=== PATIENT | female | born 1930 | race Caucasian/White ===

== ENCOUNTER 2016-10-16 06:15 | Inpatient (IN) | payer MEDICARE ==
[~2016-10-16] VITALS: Ht 152.4 cm; Wt 73.3 kg
[2016-10-16 08:55] VITALS: BP 119/67
[2016-10-16] MEDS ORDERED: HYDR-3240 PO (10:26)
[2016-10-16] MEDS ORDERED: NYST1POW2 TP (10:26)
[2016-10-16] MEDS ORDERED: CARV-39 PO (10:26)
[2016-10-16] MEDS ORDERED: MULT1TAB9 PO (10:26)
[2016-10-16] MEDS ORDERED: BIOT25005 PO (10:26)
[2016-10-16] MEDS ORDERED: LACT1CAP20 PO (10:26)
[2016-10-16] MEDS ORDERED: AMLO2.5T PO (10:26)
[2016-10-16] MEDS ORDERED: ACET-1757 PO (10:26)
[2016-10-16] MEDS ORDERED: ASCO500T8 PO (10:26)
[2016-10-16] MEDS ORDERED: LOPE2CAP94 PO (10:26)
[2016-10-16] MEDS ORDERED: HYDR-3342 PO (10:26)
[2016-10-16] MEDS ORDERED: ALPR0.25 PO (10:50)
[2016-10-16] MEDS ORDERED: ACETAMINOPHEN 325 MG TABLET PO PRN (12:00)
[2016-10-16] MEDS ORDERED: ENOXAPARIN 40 MG/0.4 ML SQ SCH (12:00)
[2016-10-16] MEDS ORDERED: PLEASE ENTER ALLERGIES MC SCH ×2 (12:00)
[2016-10-16] MEDS ORDERED: CEFTRIAXONE PMX 1GM/50ML 50 ML IV SCH (12:00)
[2016-10-16] MEDS ORDERED: ONDANSETRON 2MG/ML, 2ML IVPush PRN (12:00)
[2016-10-16] MEDS ORDERED: LABETALOL 5MG/ML, 20ML IVPush PRN (12:00)
[2016-10-16] MEDS ORDERED: BISACODYL 10 MG SUPP PR PRN (12:00)
[2016-10-16] MEDS ORDERED: HYDROcodone/APAP 5/325 TABLET PO PRN (12:00)
[2016-10-16] MEDS ORDERED: POLYETHYLENE GLYCOL 17 GM PACKET PO PRN (12:00)
[2016-10-16] MEDS ORDERED: DOCUSATE 100 MG CAPSULE PO PRN (12:00)
[2016-10-16] MEDS ORDERED: morphine SULFATE 10 MG/ML, 1ML IVPush PRN (12:00)
[2016-10-16 12:41] LABS: HEMATOCRIT 27.9 % (34.6-47.8); HEMOGLOBIN 9.1 g/dL (11.7-16.4); WHITE BLOOD COUNT 22.3 x10^3/uL (3.4-10)
[2016-10-16 12:54] LABS: BLOOD UREA NITROGEN 37 mg/dL (7-18)
[2016-10-16 13:03] LABS: DIFF TOTAL CELLS COUNTED 100 CELL DIFF
[2016-10-16 13:05] LABS: VERIFY COUNTS? YES
[2016-10-16 13:06] LABS: ANISOCYTOSIS 1+; MICROCYTOSIS 1+; OVALOCYTES 1+
[2016-10-16] MEDS: SODIUM CHLORIDE 0.9% 1,000 ML IV SCH ×2 (13:34→22:06)
[2016-10-16] MEDS: VANCOMYCIN 50 MG/ML ORAL SUSP PO SCH ×2 (13:35→20:55)
[2016-10-16 14:03] VITALS: BP 130/67
[2016-10-16 16:06] VITALS: BP 138/79
[2016-10-16 19:19] VITALS: BP 114/69
[2016-10-16] MEDS: NYSTATIN CRM 15GM TP SCH (20:55)
[2016-10-16] MEDS: CARVEDILOL 25 MG TABLET PO SCH (20:55)
[2016-10-16] MEDS: LACTOBACILLUS CHEW TABLET PO SCH (22:05)
[2016-10-17] MEDS: VANCOMYCIN 50 MG/ML ORAL SUSP PO SCH ×4 (01:06→20:40)
[2016-10-17 01:07] VITALS: BP 104/67
[2016-10-17 05:29] LABS: HEMATOCRIT 26.2 % (34.6-47.8); HEMOGLOBIN 8.4 g/dL (11.7-16.4)
[2016-10-17 05:45] LABS: BLOOD UREA NITROGEN 33 mg/dL (7-18)
[2016-10-17 06:25] LABS: DIFF TOTAL CELLS COUNTED 100 CELL DIFF
[2016-10-17 06:29] LABS: ANISOCYTOSIS 1+; MICROCYTOSIS 1+; VERIFY COUNTS? YES
[2016-10-17 06:30] LABS: OVALOCYTES 1+
[2016-10-17] MEDS: TEMPLATE NON-FORMULARY MED. (Biotin** 2,500 MG) PO SCH (09:00)
[2016-10-17] MEDS: CEFTRIAXONE PMX 1GM/50ML 50 ML IV SCH (09:09)
[2016-10-17] MEDS: ASCORBIC ACID 500 MG TABLET PO SCH (09:09)
[2016-10-17] MEDS: LACTOBACILLUS CHEW TABLET PO SCH ×2 (09:09→20:39)
[2016-10-17] MEDS: MULTIVITAMINS/MINERALS TABLET PO SCH (09:10)
[2016-10-17] MEDS: AMLODIPINE 2.5 MG TABLET PO SCH (09:10)
[2016-10-17] MEDS: CARVEDILOL 25 MG TABLET PO SCH ×2 (09:10→20:39)
[2016-10-17 11:34] VITALS: BP 102/63
[2016-10-17] MEDS ORDERED: ENOXAPARIN 30 MG/0.3 ML SQ SCH (13:00)
[2016-10-17] MEDS ORDERED: HEPARIN 5,000 UNITS/ML, 1ML SQ SCH (16:00)
[2016-10-17 16:07] VITALS: BP 102/57
[2016-10-17 20:36] VITALS: BP 110/51
[2016-10-17] MEDS: NYSTATIN CRM 15GM TP SCH (21:14)
[2016-10-18 01:14] VITALS: BP 107/59
[2016-10-18] MEDS: VANCOMYCIN 50 MG/ML ORAL SUSP PO SCH ×4 (01:57→21:28)
[2016-10-18 04:50] LABS: HEMATOCRIT 26.1 % (34.6-47.8); HEMOGLOBIN 8.3 g/dL (11.7-16.4); WHITE BLOOD COUNT 24.3 x10^3/uL (3.4-10)
[2016-10-18 05:02] LABS: BLOOD UREA NITROGEN 36 mg/dL (7-18)
[2016-10-18 05:35] LABS: DIFF TOTAL CELLS COUNTED 100 CELL DIFF
[2016-10-18 05:41] LABS: ANISOCYTOSIS 1+; VERIFY COUNTS? YES
[2016-10-18 05:43] LABS: OVALOCYTES 1+
[2016-10-18] MEDS: HEPARIN 5,000 UNITS/ML, 1ML SQ SCH ×3 (06:33→21:28)
[2016-10-18 08:17] VITALS: BP 113/50
[2016-10-18] MEDS: CARVEDILOL 25 MG TABLET PO SCH ×2 (08:58→21:29)
[2016-10-18] MEDS: LACTOBACILLUS CHEW TABLET PO SCH ×2 (08:58→21:29)
[2016-10-18] MEDS: AMLODIPINE 2.5 MG TABLET PO SCH (08:59)
[2016-10-18] MEDS: MULTIVITAMINS/MINERALS TABLET PO SCH (08:59)
[2016-10-18] MEDS: ASCORBIC ACID 500 MG TABLET PO SCH (08:59)
[2016-10-18] MEDS: TEMPLATE NON-FORMULARY MED. (Biotin** 2,500 MG) PO SCH (09:00)
[2016-10-18] MEDS: CEFTRIAXONE PMX 1GM/50ML 50 ML IV SCH (09:02)
[2016-10-18 13:02] VITALS: BP 104/54
[2016-10-18 18:11] LABS: TOTAL IRON BINDING CAPACITY 149 mcg/dL (250-450)
[2016-10-18 19:09] VITALS: BP 118/55
[2016-10-18] MEDS: DOXYCYCLINE 100 MG in DEXTROSE 5% 250 ML IV SCH (19:31)
[2016-10-18] MEDS ORDERED: FUROSEMIDE 40 MG/4 ML IV ONE (22:00)
[2016-10-18] MEDS: NYSTATIN CRM 15GM TP SCH (22:14)
[2016-10-19 01:51] VITALS: BP 114/48
[2016-10-19] MEDS: VANCOMYCIN 50 MG/ML ORAL SUSP PO SCH ×4 (03:26→22:50)
[2016-10-19 04:48] LABS: HEMATOCRIT 27.5 % (34.6-47.8); HEMOGLOBIN 8.7 g/dL (11.7-16.4); WHITE BLOOD COUNT 23.8 x10^3/uL (3.4-10)
[2016-10-19 05:00] LABS: BLOOD UREA NITROGEN 43 mg/dL (7-18)
[2016-10-19 05:22] LABS: DIFF TOTAL CELLS COUNTED 100 CELL DIFF
[2016-10-19 05:24] LABS: ANISOCYTOSIS 1+; VERIFY COUNTS? YES
[2016-10-19 05:25] LABS: MICROCYTOSIS 1+
[2016-10-19 05:26] LABS: POLYCHROMASIA 1+
[2016-10-19 06:00] VITALS: BP 118/52
[2016-10-19] MEDS: HEPARIN 5,000 UNITS/ML, 1ML SQ SCH ×3 (06:21→22:50)
[2016-10-19 06:56] VITALS: BP 123/75
[2016-10-19] MEDS: DOXYCYCLINE 100 MG in DEXTROSE 5% 250 ML IV SCH (08:27)
[2016-10-19] MEDS: TEMPLATE NON-FORMULARY MED. (Biotin** 2,500 MG) PO SCH (09:00)
[2016-10-19] MEDS: LACTOBACILLUS CHEW TABLET PO SCH ×4 (10:02→21:15)
[2016-10-19] MEDS: CARVEDILOL 25 MG TABLET PO SCH (10:02)
[2016-10-19] MEDS: ASCORBIC ACID 500 MG TABLET PO SCH (10:02)
[2016-10-19] MEDS: AMLODIPINE 2.5 MG TABLET PO SCH (10:02)
[2016-10-19] MEDS: MULTIVITAMINS/MINERALS TABLET PO SCH (10:02)
[2016-10-19] MEDS ORDERED: FUROSEMIDE 40 MG/4 ML IV SCH ×2 (10:30→17:00)
[2016-10-19] MEDS ORDERED: metroNIDAZOLE 500 MG TABLET PO SCH (10:30)
[2016-10-19 13:00] VITALS: BP 104/61
[2016-10-19] MEDS: METRONIDAZOLE PMX 500MG/100ML 100 ML IV SCH ×2 (14:30→22:50)
[2016-10-19] MEDS ORDERED: SODIUM CHLORIDE 0.9% 1,000 ML IV SCH (15:00)
[2016-10-19] MEDS: IRON SUCROSE COMPLEX 100MG/5ML IV SCH (16:55)
[2016-10-19] MEDS ORDERED: MAGNESIUM SULFATE PMX 2GM/50ML 50 ML IV ONE (18:30)
[2016-10-19 19:43] VITALS: BP 122/48
[2016-10-19] MEDS: CARVEDILOL 12.5 MG TABLET PO SCH (21:15)
[2016-10-19] MEDS: NYSTATIN CRM 15GM TP SCH (21:15)
[2016-10-20 01:16] VITALS: BP 104/62
[2016-10-20] MEDS: LACTOBACILLUS CHEW TABLET PO SCH ×4 (05:45→21:42)
[2016-10-20] MEDS: METRONIDAZOLE PMX 500MG/100ML 100 ML IV SCH ×4 (05:45→23:08)
[2016-10-20] MEDS: VANCOMYCIN 50 MG/ML ORAL SUSP PO SCH ×4 (05:45→21:42)
[2016-10-20 06:16] LABS: HEMATOCRIT 27.2 % (34.6-47.8); HEMOGLOBIN 8.6 g/dL (11.7-16.4); WHITE BLOOD COUNT 17.4 x10^3/uL (3.4-10)
[2016-10-20 06:23] LABS: BLOOD UREA NITROGEN 50 mg/dL (7-18)
[2016-10-20 06:27] LABS: ASPARTATE AMINO TRANSFERASE 7 U/L (15-37)
[2016-10-20 07:16] LABS: DIFF TOTAL CELLS COUNTED 100 CELL DIFF
[2016-10-20 07:17] VITALS: BP 147/75
[2016-10-20 07:18] LABS: VERIFY COUNTS? YES
[2016-10-20 07:19] LABS: ANISOCYTOSIS 1+
[2016-10-20 07:20] LABS: POLYCHROMASIA 1+
[2016-10-20] MEDS ORDERED: SODIUM CHLORIDE 0.9% 1,000 ML IV SCH (08:30)
[2016-10-20] MEDS: TEMPLATE NON-FORMULARY MED. (Biotin** 2,500 MG) PO SCH (08:52)
[2016-10-20] MEDS: IRON SUCROSE COMPLEX 100MG/5ML IV SCH (08:52)
[2016-10-20] MEDS: CARVEDILOL 12.5 MG TABLET PO SCH ×2 (08:53→21:42)
[2016-10-20] MEDS: MULTIVITAMINS/MINERALS TABLET PO SCH (08:53)
[2016-10-20] MEDS: ASCORBIC ACID 500 MG TABLET PO SCH (08:53)
[2016-10-20] MEDS: HEPARIN 5,000 UNITS/ML, 1ML SQ SCH ×2 (08:59→16:49)
[2016-10-20 12:57] VITALS: BP 121/70
[2016-10-20] MEDS: SODIUM BICARB 8.4%,50ML SYR. 75 MEQ in SODIUM CHLORIDE 0.45% 1,000 ML IV SCH (13:41)
[2016-10-20 19:59] VITALS: BP 135/73
[2016-10-21] MEDS: NYSTATIN CRM 15GM TP SCH ×2 (00:11→21:12)
[2016-10-21 02:00] VITALS: BP 121/61
[2016-10-21] MEDS: SODIUM BICARB 8.4%,50ML SYR. 75 MEQ in SODIUM CHLORIDE 0.45% 1,000 ML IV SCH ×3 (05:07→18:28)
[2016-10-21] MEDS: HEPARIN 5,000 UNITS/ML, 1ML SQ SCH ×3 (05:07→21:12)
[2016-10-21] MEDS: VANCOMYCIN 50 MG/ML ORAL SUSP PO SCH ×4 (05:08→22:08)
[2016-10-21] MEDS: METRONIDAZOLE PMX 500MG/100ML 100 ML IV SCH ×4 (05:08→22:08)
[2016-10-21] MEDS: LACTOBACILLUS CHEW TABLET PO SCH ×4 (05:37→21:12)
[2016-10-21 06:00] LABS: HEMATOCRIT 26.7 % (34.6-47.8); HEMOGLOBIN 8.6 g/dL (11.7-16.4); WHITE BLOOD COUNT 13.2 x10^3/uL (3.4-10)
[2016-10-21 06:07] LABS: BLOOD UREA NITROGEN 49 mg/dL (7-18)
[2016-10-21 07:15] LABS: DIFF TOTAL CELLS COUNTED 100 CELL DIFF
[2016-10-21 07:18] LABS: ANISOCYTOSIS 1+; POLYCHROMASIA 1+; VERIFY COUNTS? YES
[2016-10-21] MEDS: CARVEDILOL 12.5 MG TABLET PO SCH ×2 (08:08→21:13)
[2016-10-21] MEDS: TEMPLATE NON-FORMULARY MED. (Biotin** 2,500 MG) PO SCH (08:08)
[2016-10-21] MEDS: IRON SUCROSE COMPLEX 100MG/5ML IV SCH (08:08)
[2016-10-21] MEDS: MULTIVITAMINS/MINERALS TABLET PO SCH (08:08)
[2016-10-21] MEDS: ASCORBIC ACID 500 MG TABLET PO SCH (08:08)
[2016-10-21 08:09] VITALS: BP 127/67
[2016-10-21 13:31] VITALS: BP 155/67
[2016-10-21 19:58] VITALS: BP 161/71
[2016-10-21] MEDS ORDERED: DOCUSATE 100 MG CAPSULE PO PRN (20:30)
[2016-10-21] MEDS ORDERED: ONDANSETRON 2MG/ML, 2ML IVPush PRN (20:30)
[2016-10-21] MEDS ORDERED: BISACODYL 10 MG SUPP PR PRN (20:30)
[2016-10-21] MEDS ORDERED: ACETAMINOPHEN 325 MG TABLET PO PRN (20:30)
[2016-10-21] MEDS ORDERED: POLYETHYLENE GLYCOL 17 GM PACKET PO PRN (20:30)
[2016-10-22 03:21] VITALS: BP 148/69
[2016-10-22] MEDS: METRONIDAZOLE PMX 500MG/100ML 100 ML IV SCH ×4 (04:03→21:27)
[2016-10-22] MEDS: VANCOMYCIN 50 MG/ML ORAL SUSP PO SCH ×4 (04:03→21:27)
[2016-10-22 04:27] LABS: HEMATOCRIT 27.2 % (34.6-47.8); HEMOGLOBIN 8.7 g/dL (11.7-16.4)
[2016-10-22 04:34] LABS: BLOOD UREA NITROGEN 42 mg/dL (7-18)
[2016-10-22] MEDS: LACTOBACILLUS CHEW TABLET PO SCH ×4 (05:44→21:18)
[2016-10-22] MEDS: HEPARIN 5,000 UNITS/ML, 1ML SQ SCH ×3 (05:44→21:25)
[2016-10-22] MEDS: TEMPLATE NON-FORMULARY MED. (Biotin** 2,500 MG) PO SCH (09:00)
[2016-10-22] MEDS ORDERED: FLUCONAZOLE 200 MG TABLET PO SCH (09:00)
[2016-10-22 09:02] VITALS: BP 157/82
[2016-10-22] MEDS: SODIUM BICARB 8.4%,50ML SYR. 75 MEQ in SODIUM CHLORIDE 0.45% 1,000 ML IV SCH (09:46)
[2016-10-22] MEDS: MULTIVITAMINS/MINERALS TABLET PO SCH (10:19)
[2016-10-22] MEDS: FLUCONAZOLE 200 MG TABLET PO SCH (10:19)
[2016-10-22] MEDS: CARVEDILOL 12.5 MG TABLET PO SCH ×2 (10:19→21:17)
[2016-10-22] MEDS: ASCORBIC ACID 500 MG TABLET PO SCH (10:19)
[2016-10-22] MEDS: IRON SUCROSE COMPLEX 100MG/5ML IV SCH (11:08)
[2016-10-22 12:22] VITALS: BP 156/66
[2016-10-22] MEDS: SODIUM CHLORIDE 0.9% 1,000 ML IV SCH (12:37)
[2016-10-22 19:30] VITALS: BP 159/73
[2016-10-22] MEDS: NYSTATIN CRM 15GM TP SCH (21:17)
[2016-10-23 00:45] VITALS: BP 153/79
[2016-10-23] MEDS: METRONIDAZOLE PMX 500MG/100ML 100 ML IV SCH ×4 (04:37→22:04)
[2016-10-23] MEDS: LACTOBACILLUS CHEW TABLET PO SCH ×4 (04:37→20:56)
[2016-10-23] MEDS: HEPARIN 5,000 UNITS/ML, 1ML SQ SCH ×3 (04:38→20:57)
[2016-10-23] MEDS: VANCOMYCIN 50 MG/ML ORAL SUSP PO SCH ×4 (04:38→22:04)
[2016-10-23 05:45] LABS: HEMATOCRIT 27.4 % (34.6-47.8); HEMOGLOBIN 8.8 g/dL (11.7-16.4); WHITE BLOOD COUNT 14.5 x10^3/uL (3.4-10)
[2016-10-23 05:51] LABS: BLOOD UREA NITROGEN 32 mg/dL (7-18)
[2016-10-23 08:00] VITALS: BP 154/74
[2016-10-23] MEDS: IRON SUCROSE COMPLEX 100MG/5ML IV SCH (08:10)
[2016-10-23] MEDS: MULTIVITAMINS/MINERALS TABLET PO SCH (08:11)
[2016-10-23] MEDS: CARVEDILOL 12.5 MG TABLET PO SCH ×2 (08:12→20:56)
[2016-10-23] MEDS: SODIUM CHLORIDE 0.9% 1,000 ML IV SCH ×2 (08:12→19:20)
[2016-10-23] MEDS: FLUCONAZOLE 200 MG TABLET PO SCH (08:12)
[2016-10-23] MEDS: ASCORBIC ACID 500 MG TABLET PO SCH (08:12)
[2016-10-23] MEDS: TEMPLATE NON-FORMULARY MED. (Biotin** 2,500 MG) PO SCH (08:12)
[2016-10-23 13:21] VITALS: BP 148/79
[2016-10-23 20:00] VITALS: BP 161/70
[2016-10-23] MEDS: NYSTATIN CRM 15GM TP SCH (20:57)
[2016-10-24 00:42] VITALS: BP 152/81
[2016-10-24] MEDS: LACTOBACILLUS CHEW TABLET PO SCH ×4 (04:28→21:00)
[2016-10-24] MEDS: METRONIDAZOLE PMX 500MG/100ML 100 ML IV SCH ×4 (04:28→22:33)
[2016-10-24] MEDS: SODIUM CHLORIDE 0.9% 1,000 ML IV SCH (04:28)
[2016-10-24] MEDS: VANCOMYCIN 50 MG/ML ORAL SUSP PO SCH ×4 (04:29→22:33)
[2016-10-24] MEDS: HEPARIN 5,000 UNITS/ML, 1ML SQ SCH ×3 (04:29→21:12)
[2016-10-24 05:06] LABS: HEMATOCRIT 28.3 % (34.6-47.8); HEMOGLOBIN 8.9 g/dL (11.7-16.4); WHITE BLOOD COUNT 14.9 x10^3/uL (3.4-10)
[2016-10-24 05:21] LABS: BLOOD UREA NITROGEN 25 mg/dL (7-18)
[2016-10-24 05:33] LABS: DIFF TOTAL CELLS COUNTED 100 CELL DIFF
[2016-10-24 05:36] LABS: VERIFY COUNTS? YES
[2016-10-24 05:37] LABS: ANISOCYTOSIS 1+; POLYCHROMASIA 1+
[2016-10-24 07:27] VITALS: BP 183/78
[2016-10-24] MEDS: TEMPLATE NON-FORMULARY MED. (Biotin** 2,500 MG) PO SCH (08:56)
[2016-10-24] MEDS: CARVEDILOL 12.5 MG TABLET PO SCH ×2 (09:50→21:12)
[2016-10-24] MEDS: FLUCONAZOLE 200 MG TABLET PO SCH (09:50)
[2016-10-24] MEDS: IRON SUCROSE COMPLEX 100MG/5ML IV SCH (09:50)
[2016-10-24] MEDS: ASCORBIC ACID 500 MG TABLET PO SCH (09:50)
[2016-10-24] MEDS: MULTIVITAMINS/MINERALS TABLET PO SCH (09:54)
[2016-10-24] MEDS ORDERED: FUROSEMIDE 20 MG/2 ML IV ONE (10:30)
[2016-10-24 12:29] LABS: ABG COLLECTION SITE RIGHT RADIAL; COLLATERAL CIRCULATION TESTING NORMAL
[2016-10-24 13:21] VITALS: BP 151/75
[2016-10-24] MEDS ORDERED: ALBUTEROL/IPRATROPIUM 2.5MG/0.5MG, 3 ML ONE (14:05)
[2016-10-24] MEDS: ALBUTEROL/IPRATROPIUM 2.5MG/0.5MG, 3 ML NPPB SCH ×3 (14:12→21:36)
[2016-10-24] MEDS ORDERED: hydrALAzine 20 MG/ML, 1ML ONE (14:21)
[2016-10-24] MEDS: hydrALAzine 20 MG/ML, 1ML IV PRN (14:56)
[2016-10-24 15:53] LABS: ABG COLLECTION SITE RIGHT BRACHIAL
[2016-10-24] MEDS: NYSTATIN CRM 15GM TP SCH (21:12)
[2016-10-25] MEDS: ALBUTEROL/IPRATROPIUM 2.5MG/0.5MG, 3 ML NPPB SCH ×6 (02:30→21:34)
[2016-10-25] MEDS: HEPARIN 5,000 UNITS/ML, 1ML SQ SCH ×3 (03:57→21:02)
[2016-10-25] MEDS: METRONIDAZOLE PMX 500MG/100ML 100 ML IV SCH ×4 (03:57→22:35)
[2016-10-25] MEDS: LACTOBACILLUS CHEW TABLET PO SCH ×4 (03:57→21:02)
[2016-10-25] MEDS: VANCOMYCIN 50 MG/ML ORAL SUSP PO SCH ×4 (03:57→22:35)
[2016-10-25 04:35] LABS: ABG COLLECTION SITE ARTERIAL LINE
[2016-10-25 04:43] LABS: HEMATOCRIT 27.6 % (34.6-47.8); HEMOGLOBIN 8.7 g/dL (11.7-16.4); WHITE BLOOD COUNT 14.2 x10^3/uL (3.4-10)
[2016-10-25 04:49] LABS: BLOOD UREA NITROGEN 24 mg/dL (7-18)
[2016-10-25 05:00] VITALS: BP 169/56
[2016-10-25 05:14] LABS: DIFF TOTAL CELLS COUNTED 100 CELL DIFF
[2016-10-25 05:16] LABS: ANISOCYTOSIS 1+; VERIFY COUNTS? YES
[2016-10-25 05:17] LABS: POLYCHROMASIA 1+
[2016-10-25] MEDS: hydrALAzine 20 MG/ML, 1ML IV PRN ×2 (06:01→13:01)
[2016-10-25] MEDS: MULTIVITAMINS/MINERALS TABLET PO SCH (07:50)
[2016-10-25] MEDS: CARVEDILOL 12.5 MG TABLET PO SCH ×2 (07:50→21:01)
[2016-10-25] MEDS: FLUCONAZOLE 200 MG TABLET PO SCH (07:50)
[2016-10-25] MEDS: ASCORBIC ACID 500 MG TABLET PO SCH (07:50)
[2016-10-25] MEDS: TEMPLATE NON-FORMULARY MED. (Biotin** 2,500 MG) PO SCH (07:51)
[2016-10-25] MEDS ORDERED: FUROSEMIDE 40 MG/4 ML IV ONE (09:00)
[2016-10-25] MEDS: FIDAXOMICIN 200 MG TABLET PO SCH ×2 (13:01→21:02)
[2016-10-25] MEDS: NYSTATIN CRM 15GM TP SCH (21:01)
[2016-10-26] MEDS: hydrALAzine 20 MG/ML, 1ML IV PRN ×4 (02:01→21:04)
[2016-10-26] MEDS: ALBUTEROL/IPRATROPIUM 2.5MG/0.5MG, 3 ML NPPB SCH ×6 (02:30→21:06)
[2016-10-26] MEDS: LABETALOL 5MG/ML, 20ML IVPush PRN ×4 (04:15→23:47)
[2016-10-26] MEDS: VANCOMYCIN 50 MG/ML ORAL SUSP PO SCH (04:19)
[2016-10-26] MEDS: HEPARIN 5,000 UNITS/ML, 1ML SQ SCH ×3 (04:19→21:03)
[2016-10-26] MEDS: METRONIDAZOLE PMX 500MG/100ML 100 ML IV SCH ×4 (04:19→22:40)
[2016-10-26 04:44] LABS: ASPARTATE AMINO TRANSFERASE 18 U/L (15-37); BLOOD UREA NITROGEN 24 mg/dL (7-18)
[2016-10-26 05:00] VITALS: BP 173/77
[2016-10-26 05:00] LABS: HEMATOCRIT 28.8 % (34.6-47.8); HEMOGLOBIN 9.2 g/dL (11.7-16.4); WHITE BLOOD COUNT 16.3 x10^3/uL (3.4-10)
[2016-10-26] MEDS: LACTOBACILLUS CHEW TABLET PO SCH ×4 (06:00→21:03)
[2016-10-26] MEDS ORDERED: MAGNESIUM SULFATE PMX 4GM/100M 100 ML IV ONE (06:30)
[2016-10-26] MEDS: TEMPLATE NON-FORMULARY MED. (Biotin** 2,500 MG) PO SCH (09:00)
[2016-10-26] MEDS ORDERED: ALBUMIN HUMAN 25% 100 ML IV ONE (09:30)
[2016-10-26] MEDS: FIDAXOMICIN 200 MG TABLET PO SCH ×2 (09:58→21:03)
[2016-10-26] MEDS: CARVEDILOL 12.5 MG TABLET PO SCH ×2 (09:58→21:03)
[2016-10-26] MEDS: MULTIVITAMINS/MINERALS TABLET PO SCH (09:58)
[2016-10-26] MEDS: ASCORBIC ACID 500 MG TABLET PO SCH (09:58)
[2016-10-26] MEDS: FLUCONAZOLE 200 MG TABLET PO SCH (09:58)
[2016-10-26] MEDS ORDERED: FUROSEMIDE 40 MG/4 ML IV ONE (10:30)
[2016-10-26] MEDS: methylPREDNISolone SOD SUCC 125 MG/2 ML IVPush SCH (18:47)
[2016-10-26] MEDS: NYSTATIN CRM 15GM TP SCH (21:03)
[2016-10-27] MEDS: methylPREDNISolone SOD SUCC 125 MG/2 ML IVPush SCH ×4 (00:22→18:26)
[2016-10-27] MEDS ORDERED: hydrALAzine 20 MG/ML, 1ML ONE (00:47)
[2016-10-27] MEDS: hydrALAzine 20 MG/ML, 1ML IV PRN ×2 (01:02→12:16)
[2016-10-27] MEDS: ALBUTEROL/IPRATROPIUM 2.5MG/0.5MG, 3 ML NPPB SCH ×5 (01:47→22:50)
[2016-10-27] MEDS: METRONIDAZOLE PMX 500MG/100ML 100 ML IV SCH ×4 (04:46→22:49)
[2016-10-27] MEDS: HEPARIN 5,000 UNITS/ML, 1ML SQ SCH ×3 (04:46→21:10)
[2016-10-27 05:00] VITALS: BP 169/74
[2016-10-27 05:16] LABS: HEMATOCRIT 29.4 % (34.6-47.8); HEMOGLOBIN 9.4 g/dL (11.7-16.4)
[2016-10-27 05:24] LABS: BLOOD UREA NITROGEN 21 mg/dL (7-18)
[2016-10-27 05:39] LABS: ANISOCYTOSIS 1+
[2016-10-27] MEDS: LABETALOL 5MG/ML, 20ML IVPush PRN ×4 (06:03→21:12)
[2016-10-27] MEDS: LACTOBACILLUS CHEW TABLET PO SCH ×4 (06:03→21:10)
[2016-10-27] MEDS: TEMPLATE NON-FORMULARY MED. (Biotin** 2,500 MG) PO SCH (08:51)
[2016-10-27] MEDS: ASCORBIC ACID 500 MG TABLET PO SCH (08:54)
[2016-10-27] MEDS: CARVEDILOL 12.5 MG TABLET PO SCH ×2 (08:54→21:10)
[2016-10-27] MEDS: MULTIVITAMINS/MINERALS TABLET PO SCH (08:54)
[2016-10-27] MEDS: FLUCONAZOLE 200 MG TABLET PO SCH (08:54)
[2016-10-27] MEDS: FIDAXOMICIN 200 MG TABLET PO SCH ×2 (08:54→21:10)
[2016-10-27] MEDS ORDERED: FUROSEMIDE 40 MG/4 ML IV ONE ×2 (10:00→10:30)
[2016-10-27] MEDS ORDERED: ALBUMIN HUMAN 25% 100 ML IV ONE (10:00)
[2016-10-27] MEDS: NYSTATIN CRM 15GM TP SCH (21:10)
[2016-10-28] MEDS: hydrALAzine 20 MG/ML, 1ML IV PRN ×2 (00:03→13:00)
[2016-10-28] MEDS: methylPREDNISolone SOD SUCC 125 MG/2 ML IVPush SCH ×5 (00:03→23:34)
[2016-10-28] MEDS: ALBUTEROL/IPRATROPIUM 2.5MG/0.5MG, 3 ML NPPB SCH ×6 (02:30→20:20)
[2016-10-28 04:31] LABS: ABG COLLECTION SITE LEFT RADIAL; COLLATERAL CIRCULATION TESTING NORMAL
[2016-10-28] MEDS: HEPARIN 5,000 UNITS/ML, 1ML SQ SCH ×3 (04:38→20:30)
[2016-10-28 04:39] LABS: HEMATOCRIT 28.7 % (34.6-47.8); HEMOGLOBIN 9.4 g/dL (11.7-16.4); WHITE BLOOD COUNT 12.1 x10^3/uL (3.4-10)
[2016-10-28] MEDS: METRONIDAZOLE PMX 500MG/100ML 100 ML IV SCH ×4 (04:39→23:33)
[2016-10-28 04:46] LABS: BLOOD UREA NITROGEN 30 mg/dL (7-18)
[2016-10-28 04:50] LABS: ASPARTATE AMINO TRANSFERASE 8 U/L (15-37)
[2016-10-28 05:00] VITALS: BP 162/74
[2016-10-28 05:40] LABS: DIFF TOTAL CELLS COUNTED 100 CELL DIFF
[2016-10-28 05:42] LABS: ANISOCYTOSIS 1+; LARGE PLATELETS 1+; VERIFY COUNTS? YES
[2016-10-28] MEDS: LACTOBACILLUS CHEW TABLET PO SCH ×4 (06:12→20:27)
[2016-10-28] MEDS ORDERED: BUMETANIDE 0.25 MG/ML, 4ML IV SCH ×2 (07:30→14:00)
[2016-10-28] MEDS: TEMPLATE NON-FORMULARY MED. (Biotin** 2,500 MG) PO SCH (08:08)
[2016-10-28] MEDS: FIDAXOMICIN 200 MG TABLET PO SCH ×2 (08:16→20:28)
[2016-10-28] MEDS: ALBUMIN HUMAN 25% 100 ML IV SCH ×2 (08:16→20:26)
[2016-10-28] MEDS: ASCORBIC ACID 500 MG TABLET PO SCH (08:16)
[2016-10-28] MEDS: MULTIVITAMINS/MINERALS TABLET PO SCH (08:16)
[2016-10-28] MEDS: CARVEDILOL 12.5 MG TABLET PO SCH ×2 (08:16→20:27)
[2016-10-28] MEDS: LISINOPRIL 10 MG TABLET PO SCH ×2 (09:52→20:28)
[2016-10-28] MEDS ORDERED: BUMETANIDE 0.25 MG/ML, 4ML IV ONE (14:30)
[2016-10-28] MEDS ORDERED: NITROGLYCERIN/D5W PMX 250 ML ONE (17:38)
[2016-10-28] MEDS ORDERED: NITROGLYCERIN/D5W PMX 250 ML IV PRN (18:00)
[2016-10-28] MEDS ORDERED: BISACODYL 10 MG SUPP PR PRN (19:00)
[2016-10-28] MEDS ORDERED: ACETAMINOPHEN 325 MG TABLET PO PRN (19:00)
[2016-10-28] MEDS ORDERED: POLYETHYLENE GLYCOL 17 GM PACKET PO PRN (19:00)
[2016-10-28] MEDS ORDERED: DOCUSATE 100 MG CAPSULE PO PRN (19:00)
[2016-10-28] MEDS: BUMETANIDE 0.25 MG/ML, 4ML IV SCH (20:26)
[2016-10-28] MEDS: NYSTATIN CRM 15GM TP SCH (20:30)
[2016-10-29] MEDS: ALBUTEROL/IPRATROPIUM 2.5MG/0.5MG, 3 ML NPPB SCH ×7 (02:10→21:43)
[2016-10-29] MEDS: METRONIDAZOLE PMX 500MG/100ML 100 ML IV SCH ×3 (04:36→17:19)
[2016-10-29] MEDS: HEPARIN 5,000 UNITS/ML, 1ML SQ SCH ×3 (04:37→21:00)
[2016-10-29] MEDS: methylPREDNISolone SOD SUCC 125 MG/2 ML IVPush SCH ×2 (04:37→14:39)
[2016-10-29] MEDS: LACTOBACILLUS CHEW TABLET PO SCH ×4 (04:38→21:00)
[2016-10-29 06:27] LABS: HEMATOCRIT 26.4 % (34.6-47.8); HEMOGLOBIN 8.5 g/dL (11.7-16.4); WHITE BLOOD COUNT 9.5 x10^3/uL (3.4-10)
[2016-10-29 06:29] LABS: BLOOD UREA NITROGEN 40 mg/dL (7-18)
[2016-10-29 06:35] LABS: ABG COLLECTION SITE RIGHT RADIAL; COLLATERAL CIRCULATION TESTING NORMAL
[2016-10-29 06:40] LABS: ASPARTATE AMINO TRANSFERASE 17 U/L (15-37)
[2016-10-29 06:49] LABS: DIFF TOTAL CELLS COUNTED 100 CELL DIFF
[2016-10-29 06:50] LABS: ANISOCYTOSIS 1+; VERIFY COUNTS? YES
[2016-10-29] MEDS: TEMPLATE NON-FORMULARY MED. (Biotin** 2,500 MG) PO SCH (08:16)
[2016-10-29] MEDS: ALBUMIN HUMAN 25% 100 ML IV SCH ×2 (08:56→17:19)
[2016-10-29] MEDS: ASCORBIC ACID 500 MG TABLET PO SCH (08:59)
[2016-10-29] MEDS: FIDAXOMICIN 200 MG TABLET PO SCH ×2 (08:59→21:00)
[2016-10-29] MEDS: MULTIVITAMINS/MINERALS TABLET PO SCH (09:00)
[2016-10-29] MEDS: LISINOPRIL 10 MG TABLET PO SCH ×2 (09:00→21:00)
[2016-10-29] MEDS: CARVEDILOL 12.5 MG TABLET PO SCH ×2 (09:01→21:00)
[2016-10-29] MEDS: BUMETANIDE 0.25 MG/ML, 4ML IV SCH ×2 (09:58→17:19)
[2016-10-29] MEDS ORDERED: MORPHINE SULFATE 4 MG/ML, 1ML ONE (16:29)
[2016-10-29] MEDS ORDERED: morphine SULFATE 10 MG/ML, 1ML IVPush ONE (16:30)
[2016-10-29] MEDS: NYSTATIN CRM 15GM TP SCH (21:00)
== END 2016-10-30 03:12 | disposition expired | DRG 871 ==
LOC: 5SO 09:03 → 3NE 10-17 20:07 → 5SO 10-19 22:00 → 4WST 10-22 03:10 → CCU 10-24 13:37
PROVIDERS: ADMIT Internal Medicine; ATTEND Internal Medicine
PROC: 0T9B70Z Drainage of Bladder with Drainage Device, Via Natural or Artificial Opening (ICD-10-PCS; principal; 2016-10-16)
PROC: 02HV33Z Insertion of Infusion Device into Superior Vena Cava, Percutaneous Approach (ICD-10-PCS; 2016-10-19)
PROC: B5181ZA Fluoroscopy of Superior Vena Cava using Low Osmolar Contrast, Guidance (ICD-10-PCS; 2016-10-19)
PROC: 5A09557 Assistance with Respiratory Ventilation, Greater than 96 Consecutive Hours, Continuous Positive Airway Pressure (ICD-10-PCS; 2016-10-23)
DX: A41.4 Sepsis due to anaerobes (principal); E43 Unspecified severe protein-calorie malnutrition; J96.01 Acute respiratory failure with hypoxia; N17.0 Acute kidney failure with tubular necrosis; G93.49 Other encephalopathy; A04.7 Enterocolitis due to Clostridium difficile; I13.0 Hypertensive heart and chronic kidney disease with heart failure and stage 1 through stage 4 chronic kidney disease, or unspecified chronic kidney disease; I50.9 Heart failure, unspecified; E87.2 Acidosis; B37.49 Other urogenital candidiasis; J98.11 Atelectasis; I27.2 Other secondary pulmonary hypertension; D50.9 Iron deficiency anemia, unspecified; I34.0 Nonrheumatic mitral (valve) insufficiency; I35.0 Nonrheumatic aortic (valve) stenosis; K80.20 Calculus of gallbladder without cholecystitis without obstruction; N26.1 Atrophy of kidney (terminal); N18.9 Chronic kidney disease, unspecified; Z51.5 Encounter for palliative care; Z66 Do not resuscitate; Z72.0 Tobacco use; Z82.49 Family history of ischemic heart disease and other diseases of the circulatory system; Z68.31 Body mass index [BMI] 31.0-31.9, adult; Z90.89 Acquired absence of other organs; Z88.2 Allergy status to sulfonamides; Z88.8 Allergy status to other drugs, medicaments and biological substances; Z91.013 Allergy to seafood
CPT/HCPCS: 36415; 36569; 36600; 71010; 76770; 76937; 77001; 78582; 80048; 80053; 81001; 82436; 82570; 82803; 83540; 83550; 83605; 83735; 83880; 84100; 84133; 84145; 84300; 85025; 87040; 87081; 87086; 87106; 87324; 93306; 93970; 94640; 94660; 99285; J0696; J1644; J1650; J1756; J1940; J2405; J3370; J7060; J7620; P9047; A9540; A9558; C1751; C9898; J0360; J2270; J2930; J3475; J7030; J7050